=== PATIENT | female | born 1975 | race Caucasian/White ===

== ENCOUNTER 2022-03-05 13:24 | Emergency (ER) | payer OTHER ==
[~2022-03-05] VITALS: Ht 165.1 cm; Wt 140.9 kg
[2022-03-05 13:32] VITALS: BP 146/79
[2022-03-05] MEDS ORDERED: oxyCODONE IR 5mg (immed. release) tablet PO ONE (16:30)
[2022-03-05] MEDS ORDERED: HYDR-3965 PO (18:01)
== END 2022-03-05 18:16 | disposition home or self-care (01) ==
LOC: ER 13:25
DX: S86.812A Strain of other muscle(s) and tendon(s) at lower leg level, left leg, initial encounter (principal); Z88.1 Allergy status to other antibiotic agents; Z88.8 Allergy status to other drugs, medicaments and biological substances; X50.1XXA Overexertion from prolonged static or awkward postures, initial encounter; Y93.01 Activity, walking, marching and hiking; Y92.89 Other specified places as the place of occurrence of the external cause; Y99.8 Other external cause status
CPT/HCPCS: 29515; 73564; 73590; 73610; 73630; 99284